=== PATIENT | male | born 2000 | race Caucasian/White ===

== ENCOUNTER 2019-12-16 12:04 | Emergency (ER) | payer SELFPAY ==
[~2019-12-16] VITALS: Ht 185.4 cm; Wt 97.7 kg
[2019-12-16 13:14] LABS: BASO % 0.1 % (0.0-1.0); EOS % 0.3 % (0.0-3.0); HEMATOCRIT 41.6 % (42.0-52.0); HEMOGLOBIN 13.8 g/dl (13.5-17.5); LYMPH # 1.4 10^3/uL (1.5-5.0); LYMPH % 20.5 % (24.0-44.0); MEAN CORPUSCULAR HEMOGLOBIN 29.2 pg (27.0-33.0); MEAN CORPUSCULAR HGB CONC 33.2 g/dl (32.0-36.5); MEAN CORPUSCULAR VOLUME 88.1 fl (80.0-96.0); MONO # 0.5 10^3/uL (0.0-0.8); NEUTROPHILS # 4.8 10^3/uL (1.5-8.5); NEUTROPHILS % 71.8 % (36.0-66.0); PLATELET COUNT, AUTOMATED 220 10^3/uL (150-450); RED BLOOD COUNT 4.72 10^6/uL (4.30-6.10); WHITE BLOOD COUNT 6.7 10^3/uL (4.0-10.0)
[2019-12-16] MEDS ORDERED: NS 1,000 ML IV ONE (13:30)
[2019-12-16] MEDS ORDERED: PANTOPRAZOLE 40MG VIAL (C9113 PER 1) IV ONE (13:30)
[2019-12-16 13:37] LABS: INR 1.09; PROTHROMBIN TIME 13.8 SECONDS (11.8-14.0)
[2019-12-16 13:38] LABS: PARTIAL THROMBOPLASTIN TIME 31.7 SECONDS (25.0-38.4)
[2019-12-16 13:51] LABS: ALBUMIN 4.5 GM/DL (3.2-5.2); ALT/SGPT 25 U/L (12-78); BILIRUBIN,DIRECT 0.2 MG/DL (0.0-0.2); BILIRUBIN,TOTAL 0.5 MG/DL (0.2-1.0); LIPASE 42 U/L (73-393); TOTAL PROTEIN 7.5 GM/DL (6.4-8.2)
[2019-12-16] MEDS: GASTROGRAFIN SOLUTION 30ML PO SCH ×2 (14:01→14:30)
[2019-12-16 14:44] LABS: C REACTIVE PROTEIN QUANTITATIV < 0.30 MG/DL (0.00-0.30)
[2019-12-16 15:09] LABS: ERYTHROCYTE SEDIMENTATION RATE 5 mm/hr (0-15)
[2019-12-16] MEDS ORDERED: ISOVUE-370 76% 100ML VIAL As Ordered ONE (15:30)
[2019-12-16] MEDS ORDERED: CARA1TAB6 PO (16:33)
[2019-12-16] MEDS ORDERED: ONDA4TAB6 PO (16:33)
[2019-12-16] MEDS ORDERED: PROT1TAB2 PO (16:33)
[2019-12-16 16:50] VITALS: BP 67/86
--- NOTE | 2019-12-16 17:06 | REP ---
CT ABDOMEN AND PELVIS WITH ORAL AND IV CONTRAST: TECHNIQUE: Axial contrast-enhanced images from the lung bases to the pubic symphysis using 100 mL Isovue-370 intravenous contrast material with multiplanar reformations. Visualized lung bases are clear. The liver, spleen, adrenals, pancreas and kidneys are normal in appearance. There is no hydronephrosis. There is no abdominal aortic aneurysm. There is no adenopathy. There is no free air or free fluid. No bowel wall thickening is seen. The appendix is normal. There is no pelvic mass. No anterior abdominal wall defect is seen. Urinary bladder is mildly distended and grossly unremarkable. IMPRESSION: Negative CT abdomen and pelvis with oral and IV contrast. Normal appendix. No acute abnormality is detected. Electronically Signed by Karl Keating MD 12/17/2019 01:16 P
== END 2019-12-16 16:51 | disposition home or self-care (01) ==
LOC: M ED 12:04
DX: K92.0 Hematemesis (principal); K27.9 Peptic ulcer, site unspecified, unspecified as acute or chronic, without hemorrhage or perforation
CPT/HCPCS: 36415; 74177; 80047; 80076; 83690; 85025; 85610; 85652; 85730; 86140; 86850; 86900; 86901; 96361; 96374; 99284; C9113; Q9963; Q9967

== ENCOUNTER 2020-03-23 13:18 | Emergency (ER) | payer MEDICAID, SELFPAY ==
[~2020-03-23] VITALS: Ht 185.4 cm; Wt 97.0 kg
[~2020-03-23 13:18] MED LIST: CARA1TAB6 PO; ONDA4TAB6 PO; PROT1TAB2 PO
[2020-03-23 19:11] VITALS: BP 128/79
== END 2020-03-23 19:13 | disposition home or self-care (01) ==
LOC: M ED 13:18
DX: F43.0 Acute stress reaction (principal); Z63.0 Problems in relationship with spouse or partner; F90.9 Attention-deficit hyperactivity disorder, unspecified type; F12.10 Cannabis abuse, uncomplicated; F41.9 Anxiety disorder, unspecified; F95.2 Tourette's disorder